=== PATIENT | female | born 1960 | race Caucasian/White ===

== ENCOUNTER → 2017-01-18 | Day surgery (SDC) | payer OTHER ==
[~2017-01-18] VITALS: Ht 170.2 cm; Wt 95.4 kg
[~2017-01-18] MED LIST: AMOXICILLIN500 MG PO; ASMANEX HFA13 G1 INH; ASPIRIN EC81 MG PO; ASPIRIN325 MG PO; CPAP INH; DELTASONE20 MG PO; FLEXERIL10 MG PO; LIPITOR40 MG PO; LISINOPRIL10 MG PO; MOBIC15 MG PO; NEXIUM40 MG PO; PRAVACHOL80 MG PO; PROAIR HFA8.5 GM INH; PROTONIX40 MG PO; PULMICORT FLE180 MCG INH; PULMICORT0.25 MG/2; SINGULAIR10 MG PO; SYMBICORT 16010.2 GM INH; SYNTHROID50 MCG PO; ZYRTEC10 MG PO
== END | disposition disaster alternative care site (69) ==
LOC: GPOC 01-11 09:00 → GEND 07:36
PROC: 0D748ZZ Dilation of Esophagogastric Junction, Via Natural or Artificial Opening Endoscopic (ICD-10-PCS; principal; 2017-01-18)
DX: K22.2 Esophageal obstruction (principal); K31.7 Polyp of stomach and duodenum; K21.9 Gastro-esophageal reflux disease without esophagitis; I10 Essential (primary) hypertension; J45.909 Unspecified asthma, uncomplicated; G47.33 Obstructive sleep apnea (adult) (pediatric); M19.90 Unspecified osteoarthritis, unspecified site; E11.9 Type 2 diabetes mellitus without complications; E03.9 Hypothyroidism, unspecified; Z86.73 Personal history of transient ischemic attack (TIA), and cerebral infarction without residual deficits; Z90.49 Acquired absence of other specified parts of digestive tract; Z90.710 Acquired absence of both cervix and uterus; Z98.890 Other specified postprocedural states; Z79.82 Long term (current) use of aspirin; Z79.899 Other long term (current) drug therapy; Z79.2 Long term (current) use of antibiotics; Z88.1 Allergy status to other antibiotic agents; Z88.2 Allergy status to sulfonamides; Z88.5 Allergy status to narcotic agent
CPT/HCPCS: C1726; J2001; J7030